=== PATIENT | male | born 1965 | race Two or more races ===

== ENCOUNTER 2018-02-15 09:16 | Emergency (ER) | payer BC ==
[~2018-02-15] VITALS: Ht 167.6 cm; Wt 77.1 kg
[~2018-02-15 09:16] MED LIST: ALBU90OI INH; AMOX500 PO; CARI350 PO; CIPR500 PO; HYDACE5 PO; HYDGUAL120 PO; Mobic15 MG PO; NITR.6SL SL; OMEP20ER PO; Prinivil10 MG PO; RANI150 PO; RXHYDGUAS PO; TRAM50; TRAM50 PO; [UNRECOGNIZED DRUG - REMARK]
[2018-02-15] MEDS ORDERED: GABA300 PO (09:30)
[2018-02-15] MEDS ORDERED: IBUP800 PO (10:06)
[2018-02-15] MEDS ORDERED: Sudogest60 MG PO (10:06)
== END 2018-02-15 10:11 | disposition home or self-care (01) ==
LOC: ER 09:16
DX: R51 Headache (principal); I10 Essential (primary) hypertension; K21.9 Gastro-esophageal reflux disease without esophagitis; F17.220 Nicotine dependence, chewing tobacco, uncomplicated; Z79.899 Other long term (current) drug therapy
CPT/HCPCS: 99283